=== PATIENT | female | born 1990 | race Caucasian/White ===

== ENCOUNTER 2022-10-24 23:51 | Emergency (ER) | payer MEDICAID, SELFPAY ==
[2022-10-24 23:55] VITALS: BP 133/88; PULSE 98; RESP 16; TEMP 36.6; O2SAT 98; BMI 44.1
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
[2022-10-25 00:30] VITALS: BP 133/88; PULSE 70; RESP 18; TEMP 36.6; O2SAT 98
[2022-10-25 00:35] VITALS: BP 129/71; PULSE 84; RESP 16; TEMP 36.6; O2SAT 98
== END 2022-10-25 00:39 | disposition home or self-care (01) ==
PROVIDERS: Emergency Provider Emergency Medicine
DX: K42.0 Umbilical hernia with obstruction, without gangrene (principal); E66.9 Obesity, unspecified; R73.03 Prediabetes; Z87.891 Personal history of nicotine dependence
CPT/HCPCS: 99282

== ENCOUNTER 2023-02-18 20:32 | Emergency (ER) | payer MEDICAID, SELFPAY ==
[2023-02-18 20:33] VITALS: BP 166/97; PULSE 80; RESP 18; TEMP 36.8; O2SAT 100; BMI 42.7
--- NOTE | 2023-02-18 20:48 | HMH.EDGENADL ---
Discharge Plan Disposition Patient Disposition: Home, Self-Care Prescriptions Prescriptions: New amoxicillin-pot clavulanate 875-125 mg tablet 1 tab PO BID 10 Days Qty: 20 0RF No Action lisinopril 5 mg Tablet 5 mg PO BID Referrals Follow up/Referrals: Provider,Referral, [Primary Care Provider] - See instructions Activity Restrictions/Add. Instructions Additional Instructions/Restrictions: call your family doctor to establish care for this visit to the emergency department and schedule follow-up within 48 hours to ensure improvement. If you have any worsening of your condition or any other concerning signs or symptoms, return to the emergency department or your primary care doctor for further evaluation. Clinical Impressions Clinical Impression: Otitis media Qualifiers: Otitis media type: suppurative Chronicity: acute Laterality: right Recurrence: recurrent Spontaneous tympanic membrane rupture: without spontaneous rupture Qualified Code(s): H66.004 - Acute suppurative otitis media without spontaneous rupture of ear drum, recurrent, right ear Discharge ED Provider: Jose Diaz General Adult HPI General Chief complaint: Ear Stated complaint: right ear pain Time Seen by Provider: 02/18/23 20:34 Mode of Arrival: Ambulatory Source of Information: Patient Limitations: No Limitations Description of Symptoms (Recalled from ER Triage Doc. by RN): 33 year old female with a history of ear drum repair when she was a teenager. Presents to emergency department with severe ear pain worse pain if ever felt in my ear, radiates down my jaw and right side of my neck Patient states she has taken an antibiotic prescribed from [facility] about a week ago but no improvements. States she has taken OTC pain medications but no relief has been provided. Concerend she may have done something to her ear drum. History of Present Illness HPI narrative: 33-year-old female history of numerous ear infections and tympanostomy is presenting with bilateral ear pressure and pain. Had numerous abscesses in the past. Now having pressure extending down the right side of her neck. Able to swallow, no difficulty or pain with breathing or swallowing or pain to range of motion of neck. Went to an outside ED, was prescribed amoxicillin, does not feel that it has gotten much better. Came here for second opinion. Related Data Home Medications Medication Instructions Recorded Confirmed lisinopril 5 mg tablet 5 mg PO BID 02/18/23 02/18/23 Previous Rx's Medication Instructions Recorded amoxicillin 875 mg-potassium 1 tab PO BID 10 days #20 tabs 02/18/23 clavulanate 125 mg tablet Allergies Allergy/AdvReac Type Severity Reaction Status Date / Time No Known Allergies Allergy Verified 02/18/23 20:52 [facility] Disclaimer: The information contained in this section may have been updated after the patient was seen, as this information can be updated by other users. Social History (Updated 10/25/22 @ 00:36 by Kristofer Farias MD) Smoking Status: Former smoker alcohol intake: never current occupational status: other Travel in the last 8 weeks: None ROS Obtained: Yes All systems reviewed & no additional complaints except as documented Physical Exam General General appearance: alert and in no apparent distress Head Head exam: atraumatic and normocephalic Eye Eye exam: Present normal appearance, PERRL and EOMI ENT ENT exam: Present mucous membranes moist and normal external ear exam; Absent TM's normal bilaterally (Left TM with layering pus and effusion, right TM with layering pus, effusion, mild erythema and gas. No perforation) Neck Neck exam: Present normal inspection, full ROM and trachea midline Respiratory Respiratory exam: Absent respiratory distress, wheezes, stridor, accessory muscle use or prolonged expiratory phase Cardiovascular Cardiovascular exam: Present normal rhythm Abdominal Exam Abdominal ex
[2023-02-18 21:01] VITALS: BP 166/97; PULSE 68; RESP 15; TEMP 36.8; O2SAT 98
== END 2023-02-18 21:06 | disposition home or self-care (01) ==
PROVIDERS: Emergency Provider Emergency Medicine
DX: H66.004 Acute suppurative otitis media without spontaneous rupture of ear drum, recurrent, right ear (principal); Z87.891 Personal history of nicotine dependence
CPT/HCPCS: 99283